=== PATIENT | male | born 1970 | race Hispanic/Latino ===

== ENCOUNTER → 2017-11-04 | Outpatient (CLI) | payer OTHER ==
--- NOTE | 2017-11-04 08:55 | Diagnostic Imaging Report ---
PROCEDURE:TESTICULAR ULTRASOUND COMPARISON:None. INDICATIONS:Testicular Pain TECHNIQUE: Ca-scale and color doppler images of the testicles and scrotal contents were obtained. Duplex imaging with spectral waveform analysis was performed of the testicular arteries and veins. FINDINGS: RIGHT SCROTUM: Testicle: 4.4 x 2.3 x 3.3 cm. Uniform homogeneous parenchymal echotexture with normal arterial and venous waveforms by color Doppler and spectral waveform analysis. Epididymal head: 1 x 0.4 x 1 cm. Hydrocele: None Varicocele: None LEFT SCROTUM: Testicle: 4.0 x 2.4 x 3.0 cm. Uniform homogenous parenchymal echotexture with normal arterial and venous waveforms by color Doppler and spectral waveform analysis. Epididymal head: 1.1 x 0.4 x 0.6 cm. Hydrocele: None Varicocele: None CONCLUSION: Unremarkable scrotal ultrasound. Dictated by: Lobito Tellez M.D. on 11/04/2017 at 8:55 Electronically approved by: Lobito Tellez M.D. on 11/04/2017 at 8:55
--- NOTE | 2017-11-04 08:56 | Diagnostic Imaging Report ---
PROCEDURE:TESTICULAR DOPPLER ULTRASOUND COMPARISON:None. INDICATIONS:Testicular Pain TECHNIQUE: Ca-scale and color doppler images of the testicles and scrotal contents were obtained. Duplex imaging with spectral waveform analysis was performed of the testicular arteries and veins. FINDINGS: See conclusion CONCLUSION: Refer to "[facility] TESTICULAR" also 11/04/2017 for full dictated report. Dictated by: Lobito Tellez M.D. on 11/04/2017 at 8:55 Electronically approved by: Lobito Tellez M.D. on 11/04/2017 at 8:55
== END ==
LOC: US 07:43
PROVIDERS: ATTEND Family Medicine
DX: N50.819 Testicular pain, unspecified (principal)
CPT/HCPCS: 76870; 93976

== ENCOUNTER → 2019-05-04 | Outpatient (CLI) | payer OTHER ==
--- NOTE | 2019-05-04 09:48 | Diagnostic Imaging Report ---
Exam: Testicular ultrasound. Clinical History: Testicular pain Findings: Sonographic evaluation of the testicles with grayscale, color Doppler, and waveform analysis. Both testes are normal in echogenicity and size without intratesticular mass. Normal symmetric blood flow with no evidence of testicular torsion. RIGHT: The right testicle measures 4.6 x 2.2 x 3.3 cm. Homogeneous echotexture with no focal mass. Normal blood flow. The right epididymis measures 0.9 0.9 x 1.1 cm. No hydrocele or varicocele. LEFT: The left testicle measures 4.9 x 2.2 x 2.9 cm. Homogeneous echotexture with no focal mass. Normal blood flow. The left epididymis measures 1.0 x 0.7 x 0.8 cm. No hydrocele or varicocele IMPRESSION: Unremarkable testicular ultrasound. Signed by: Ramiro Salvador MD on 05/04/2019 9:45 AM
== END ==
LOC: US 07:49
PROVIDERS: ATTEND Family Medicine
DX: N50.812 Left testicular pain (principal); N50.811 Right testicular pain
CPT/HCPCS: 76870; 93976

== ENCOUNTER 2022-04-10 10:21 | Emergency (ER) | payer OTHER ==
[~2022-04-10] VITALS: Ht 165.1 cm; Wt 86.2 kg
[2022-04-10] MEDS ORDERED: SODIUM CHLORIDE 0.9% 1000ML 1,000 ML IV STA (11:01)
[2022-04-10] MEDS ORDERED: ONDANSETRON HCL INJ 2MG/ML 2ML 2 MG/ML VIAL IV PRN (11:15)
[2022-04-10 11:19] LABS: BASOPHILS % 0.3 % (0.0-1.0); EOSINOPHILS % 0.4 % (0.0-6.0); HEMATOCRIT 40.8 % (38.2-49.6); HEMOGLOBIN 14.2 g/dL (14.0-18.0); LYMPHOCYTES # (AUTO) 0.7 (1.0-3.2); LYMPHOCYTES % 6.1 % (18.0-39.1); MEAN CORPUSCULAR HEMOGLOBIN 32.2 pg (28-32); MEAN CORPUSCULAR HGB CONC 34.8 g/dL (31-35); MEAN CORPUSCULAR VOLUME 92.5 fL (81-99); MONOCYTES # (AUTO) 0.8 (0.2-0.8); MONOCYTES % 6.8 % (4.4-11.3); NEUTROPHILS # (AUTO) 9.6 (2.1-6.9); NEUTROPHILS % 85.9 % (38.7-80.0); PLATELET COUNT 147 x10e3/uL (140-360); RED BLOOD COUNT 4.41 x10e6/uL (4.3-5.7); RED CELL DISTRIBUTION WIDTH 12.9 % (11.7-14.4)
[2022-04-10 11:36] LABS: CLARITY,URINE CLEAR (CLEAR); COLOR,URINE YELLOW (YELLOW); KETONES,URINE NEGATIVE (NEGATIVE); LEUKOCYTE ESTERASE ,URINE TRACE (NEGATIVE); NITRITE,URINE NEGATIVE (NEGATIVE); PROTEIN,URINE DIPSTICK NEGATIVE (NEGATIVE); URINE UROBILINOGEN 0.2 mg/dL (0.2 - 1)
[2022-04-10 11:37] LABS: ALBUMIN 3.4 g/dL (3.5-5.0); ALBUMIN/GLOBULIN RATIO 0.8 (0.8-2.0); ANION GAP 14.3 mmol/L (8-16); CALCIUM 8.6 mg/dL (8.4-10.2); CREATININE, SERUM 0.71 mg/dL (0.72-1.25); POTASSIUM 3.3 mmol/L (3.5-5.1)
[2022-04-10 11:53] LABS: RBC,URINE 0-5 /HPF (0-5)
[2022-04-10 11:54] LABS: BACTERIA,URINE FEW /HPF; EPITHELIAL CELLS,URINE FEW /LPF
[2022-04-10] MEDS ORDERED: IOPAMIDOL 300MG/ML 100 ML INFUS..BTL IV ONE (12:14)
[2022-04-10 14:17] VITALS: BP 143/85
== END 2022-04-10 13:58 | disposition home or self-care (01) ==
LOC: ER 10:24
DX: R50.9 Fever, unspecified (principal); M54.50 Low back pain, unspecified; I10 Essential (primary) hypertension; Z20.822 Contact with and (suspected) exposure to COVID-19
CPT/HCPCS: 36415; 72132; 74177; 80053; 81001; 83690; 85025; 99284; J2405; J7030; Q9967; U0002